=== PATIENT | female | born 1950 | race Caucasian/White ===

== ENCOUNTER → 2019-02-13 07:43 | Outpatient (CLI) | payer MEDICARE, SELFPAY ==
--- NOTE | 2019-02-13 07:51 | BI_ITS ---
MAMMOGRAPHY - BILATERAL SCREENING REASON FOR EXAM: Female, 68 years old. Routine annual screening examination. PERTINENT HISTORY: Aunt with breast cancer. Bilateral stereotactic breast biopsy and left excisional breast biopsy. TECHNIQUE: Digital bilateral breast rachael (3D mammographic acquisition) in the CC and MLO projections. 2-D mediolateral oblique (MLO) and craniocaudad (CC) views of both breasts were obtained. CAD: Full Field Digital Mammography with Computer Added Detection was performed. COMPARISON: Comparison is made with prior outside examination dated February 12, 2018. FINDINGS: Breast Composition: There are scattered areas of fibroglandular density. There are no dominant masses or suspicious calcifications. No other significant abnormalities are identified. There has been no significant change since the prior study. BI/SCREEN MAMM (CAD) W/RACHAEL BILAT IMPRESSION: Stable bilateral screening mammogram. Yearly follow-up mammogram recommended. (A) ASSESSMENT CATEGORY: BIRADS Category 2: Benign. A letter regarding these results will be sent to the patient by the facility within 30 days. Approximately 10% of breast cancers are not detected by mammography. A normal mammogram should not delay biopsy of a clinically suspicious abnormality. [id number] Electronically Signed: Quinton Izquierdo, at 8:59 EST , Service support ,
== END ==
PROVIDERS: Family Provider Physician Assistant; PCP Physician Assistant; Referring Provider Physician Assistant; Visit Provider Physician Assistant
DX: Z12.31 Encounter for screening mammogram for malignant neoplasm of breast (principal)
CPT/HCPCS: 77063; 77067

== ENCOUNTER → 2020-04-16 06:55 | Outpatient (CLI) | payer MEDICARE, SELFPAY ==
--- NOTE | 2020-04-16 06:57 | BI_ITS ---
MAMMOGRAPHY - BILATERAL SCREENING REASON FOR EXAM: Female, 70 years old. Routine annual screening examination. PERTINENT HISTORY: Aunt with breast cancer. History of remote bilateral stereotactic breast biopsies. TECHNIQUE: Digital bilateral breast rachael (3D mammographic acquisition) in the CC and MLO projections. 2-D mediolateral oblique (MLO) and craniocaudad (CC) views of both breasts were obtained. CAD: Full Field Digital Mammography with Computer Added Detection was performed. COMPARISON: Comparison is made with prior examination dated 02/13/2019. FINDINGS: Breast Composition: There are scattered areas of fibroglandular density. There are no dominant masses or suspicious calcifications. No other significant abnormalities are identified. There has been no significant change since the prior study. BI/SCRN MAMM (CAD)W/RACHAEL BILAT IMPRESSION: Stable bilateral screening mammogram. Yearly follow-up mammogram recommended. (A) ASSESSMENT CATEGORY: BIRADS Category 1: Negative. A letter regarding these results will be sent to the patient by the facility within 30 days. Approximately 10% of breast cancers are not detected by mammography. A normal mammogram should not delay biopsy of a clinically suspicious abnormality. [id number] Electronically Signed: Quinton Izquierdo MD at 8:28 EST , Service support ,
== END ==
PROVIDERS: PCP Registered Nurse; Referring Provider Registered Nurse; Visit Provider Registered Nurse
DX: Z12.31 Encounter for screening mammogram for malignant neoplasm of breast (principal)
CPT/HCPCS: 77063; 77067

== ENCOUNTER 2021-04-20 07:38 | Outpatient (CLI) | payer MEDICARE, SELFPAY ==
--- NOTE | 2021-04-20 07:41 | BI_ITS ---
MAMMOGRAPHY - BILATERAL SCREENING REASON FOR EXAM: Female, 71 years old. Routine annual screening examination. PERTINENT HISTORY: Aunt with breast cancer. Remote bilateral stereotactic breast biopsies. Remote right excisional breast biopsy. TECHNIQUE: Digital bilateral breast rachael (3D mammographic acquisition) in the CC and MLO projections. 2-D mediolateral oblique (MLO) and craniocaudad (CC) views of both breasts were obtained. CAD: Full Field Digital Mammography with Computer Added Detection was performed. COMPARISON: Comparison is made with prior study dated 10/14/2020 and 02/13/2019. FINDINGS: Breast Composition: There are scattered areas of fibroglandular density. There are no dominant masses or suspicious calcifications. No other significant abnormalities are identified. There has been no significant change since the prior study. BI/SCRN MAMM (CAD)W/RACHAEL BILAT IMPRESSION: Stable bilateral screening mammogram. Yearly follow-up mammogram recommended. (A) ASSESSMENT CATEGORY: BIRADS Category 1: Negative. A letter regarding these results will be sent to the patient by the facility within 30 days. Approximately 10% of breast cancers are not detected by mammography. A normal mammogram should not delay biopsy of a clinically suspicious abnormality. [id number] Electronically Signed: Quinton Izquierdo MD at 8:42 EST , Service support ,
== END 2021-04-20 23:59 | disposition short-term general hospital (02) ==
LOC: OPBI 07:39
PROVIDERS: PCP Registered Nurse; Visit Provider Registered Nurse
DX: Z12.31 Encounter for screening mammogram for malignant neoplasm of breast (principal); Z80.3 Family history of malignant neoplasm of breast
CPT/HCPCS: 77063; 77067

== ENCOUNTER → 2022-04-22 | Outpatient (CLI) | payer MEDICARE, SELFPAY ==
--- NOTE | 2022-04-22 10:11 | BI_ITS ---
MAMMOGRAPHY - BILATERAL SCREENING REASON FOR EXAM: Female, 72 years old. Routine annual screening examination. PERTINENT HISTORY: Aunt with breast cancer. History of prior bilateral stereotactic biopsies and right excisional breast biopsy. TECHNIQUE: Digital bilateral breast rachael (3D mammographic acquisition) in the CC and MLO projections. 2-D mediolateral oblique (MLO) and craniocaudad (CC) views of both breasts were obtained. CAD: Full Field Digital Mammography with Computer Added Detection was performed. COMPARISON: Comparison is made with prior examination dated 04/20/2021 and 04/16/2020. FINDINGS: Breast Composition: There are scattered areas of fibroglandular density. There are no dominant masses or suspicious calcifications. No other significant abnormalities are identified. There has been no significant change since the prior study. BI/SCRN MAMM (CAD)W/RACHAEL BILAT IMPRESSION: Stable bilateral screening mammogram. Yearly follow-up mammogram recommended. (A) ASSESSMENT CATEGORY: BIRADS Category 1: Negative. A letter regarding these results will be sent to the patient by the facility within 30 days. Approximately 10% of breast cancers are not detected by mammography. A normal mammogram should not delay biopsy of a clinically suspicious abnormality. [id number] Electronically Signed: Quinton Izquierdo MD at 11:16 EST ,
== END | disposition home or self-care (01) ==
LOC: OPBI 10:09
PROVIDERS: PCP Registered Nurse; Visit Provider Registered Nurse
DX: Z12.31 Encounter for screening mammogram for malignant neoplasm of breast (principal)
CPT/HCPCS: 77063; 77067

== ENCOUNTER → 2023-04-24 | Outpatient (CLI) | payer MEDICARE, SELFPAY ==
--- NOTE | 2023-04-24 09:47 | BI_ITS ---
MAMMOGRAPHY - BILATERAL SCREENING REASON FOR EXAM: Female, 73 years old. Routine annual screening examination. PERTINENT HISTORY: Aunt with breast cancer. History of prior bilateral stereotactic biopsies. Remote right excisional breast biopsy. TECHNIQUE: Digital bilateral breast rachael (3D mammographic acquisition) in the CC and MLO projections. 2-D mediolateral oblique (MLO) and craniocaudad (CC) views of both breasts were obtained. CAD: Full Field Digital Mammography with Computer Added Detection was performed. COMPARISON: Comparison is made with prior study dated October 20, 2022 and October 18, 2021. FINDINGS: Breast Composition: There are scattered areas of fibroglandular density. There are no dominant masses or suspicious calcifications. The patient clip marker is seen in the central lateral aspect of the left breast. No other significant abnormalities are identified. There has been no significant change since the prior study. BI/SCRN MAMM (CAD)W/RACHAEL BILAT IMPRESSION: Stable bilateral screening mammogram. Yearly follow-up mammogram recommended. (A) ASSESSMENT CATEGORY: BIRADS Category 2: Benign. A letter regarding these results will be sent to the patient by the facility within 30 days. Approximately 10% of breast cancers are not detected by mammography. A normal mammogram should not delay biopsy of a clinically suspicious abnormality. [id number] Electronically Signed: Quinton Izquierdo MD at 11:04 EST ,
--- OUTSIDE RECORDS SUMMARY | 2023-04-24 10:36 | XMS RPT_ITS | CCD ---
Author Name Unknown Address [address] [place] [address] Organization [facility] Care Team Providers Care Senior Consulting Manager Name Role Phone Jaida Muniz Unavailable Hoang Kay Unavailable [phone] JAIDA MUNIZ Unavailable Unavailable JAIDA MUNIZ Unavailable Unavailable JAIDA MUNIZ Unavailable Unavailable Marisa Carter PA-C Primary Care Provider [phone] Marisa Carter PA-C Primary Care Provider [phone] Marisa Carter PA-C Primary Care Provider [phone] Marisa CARTER Primary Care Unavailable DOMONIQUE GALVEZ Referring Unavailable Marisa CARTER Primary Care Unavailable DOMONIQUE GALVEZ Attending Unavailable Medications Current Medications Medication Drug Class(es) Dates Sig (Normalized) Sig (Original) rosuvastatin calcium 5 mg oral tablet (1 source) HMG-CoA Reductase Inhibitor take 1 tablet by mouth once daily rosuvastatin (CRESTOR) 5 MG PO TABS take 1 Tab by mouth Daily. Active Completed/Discontinued Medications Medication Drug Class(es) Dates Sig (Normalized) Sig (Original) atorvastatin 40 mg oral tablet (15 sources) HMG-CoA Reductase Inhibitor Start: 02-15-2022 End: 01-24-2023 take 1 tablet by mouth once daily atorvastatin (LIPITOR) 40 mg tablet Indications: Mixed hyperlipidemia Take 1 tablet by mouth once daily. 90 tablet 3 01/24/2023 Active Problems Active Problems Problem Classification Problem Date Documented Date Episodic/Chronic Diabetes mellitus without complication (15 sources) Disorder of glucose metabolism; Translations: [Other abnormal glucose] Onset: 10-30-2009 11-14-2014 Episodic Disorders of lipid metabolism (16 sources) Hyperlipidemia; Translations: [Hyperlipidemia, unspecified] Onset: 01-19-2016 01-19-2016 Chronic Nonmalignant breast conditions (1 source) Fibrocystic disease of breast; Translations: [Fibrocystic breast] 12-09-2008 Chronic Nonmalignant breast conditions (1 source) Breast lump; Translations: [Breast nodule] 09-15-2008 Episodic Other ear and sense organ disorders (2 sources) Acute otitis externa of right ear; Translations: [Unspecified acute noninfective otitis externa, right ear] Episodic Other endocrine disorders (18 sources) Hyperparathyroidism; Translations: [Hyperparathyroidism, unspecified] Onset: 04-19-2018 Chronic Other endocrine disorders (1 source) Hyperparathyroidism, unspecified; Translations: [Hyperparathyroidism (HCC)] Onset: 04-19-2018 Chronic Other nutritional; endocrine; and metabolic disorders (3 sources) Hypercalcemia; Translations: [Hypercalcemia] Chronic Residual codes; unclassified (1 source) Asymptomatic menopausal state; Translations: [Asymptomatic postmenopausal status] Onset: 02-21-2023 Episodic Substance-related disorders (14 sources) Tobacco user; Translations: [Nicotine dependence, unspecified, uncomplicated] Onset: 01-11-2006 03-22-2021 Chronic Thyroid disorders (20 sources) Multinodular goiter; Translations: [Nontoxic multinodular goiter] Onset: 05-30-2017 Chronic Unclassified (3 sources) Breast neoplasm screening status; Translations: [Mammography abnormal] 09-15-2008 Episodic Unclassified (1 source) Encounter for screening mammogram for malignant neoplasm of breast / Z12.31(ICD-10) Onset: 02-12-2018 Past or Other Problems Problem Classification Problem Date Documented Da te Episodic/Chronic Genitourinary symptoms and ill-defined conditions (14 sources) Oseas hematuria; Translations: [Gross hematuria] Onset: 01-02-2019 01-02-2019 Episodic Headache; including migraine (14 sources) Headache; Translations: [Chronic nonintractable headache] Onset: 09-24-2009 01-22-2016 Episodic Other bone disease and musculoskeletal deformities (17 sources) Osteopenia; Translations: [Other specified disorders of bone density and structure, unspecified thigh] Onset: 10-04-2017 Episodic Other bone disease and musculoskeletal deformities (1 source) Other specified disorders of bone density and structure, unspecified thigh; Translations: [Osteopenia of neck of femur, unspecified laterality] Onset: 10-04-2017 Episodic Unclassified (1 source) Encounter for screening mammogram for malignant neoplasm of breast; Translations: [Encounter for screening mammogram for malignant neoplasm of breast] Onset: 02-12-2018 Results Test Name Value Interpretation Reference Range Facil ity Vital Signs Date Time Vital Sign Value Performing Clinician Ricardo kahn 01-16-2022 13:41-0400 Body temperature 98.4 [degF] Kirsten Pat ELECTRICAL INSTALLATION INSPECTOR.CORRECTIONS SERGEANT Work Phone: [facility] 01-16-2022 13:41-0400 Body weight 72.12 kg Kirsten Pat ELECTRICAL INSTALLATION INSPECTOR.CORRECTIONS SERGEANT Work Phone: [facility] 01-16-2022 13:41-0400 Diastolic blood pressure 84 mm[Hg] Kirsten Pat ELECTRICAL INSTALLATION INSPECTOR.CORRECTIONS SERGEANT Work Phone: [facility] 01-16-2022 13:41-0400 Heart rate 126 /min Kirsten Pat ELECTRICAL INSTALLATION INSPECTOR.CORRECTIONS SERGEANT Work Phone: [facility] 01-16-2022 13:41-0400 Respiratory rate 18 /min Kirsten Pat ELECTRICAL INSTALLATION INSPECTOR.CORRECTIONS SERGEANT Work Phone: [facility] 01-16-2022 13:41-0400 SaO2% (BldA) [Mass fraction] 98 % Kirsten Pat ELECTRICAL INSTALLATION INSPECTOR.CORRECTIONS SERGEANT Work Phone: [facility] 01-16-2022 13:41-0400 Systolic blood pressure 148 mm[Hg] Kirsten Pat ELECTRICAL INSTALLATION INSPECTOR.CORRECTIONS SERGEANT Work Phone: [facility] 06-22-2021 10:17-0400 Body height 165.1 cm Zulay Littlejohn MD Work Phone: [facility] 06-22-2021 10:17-0400 Body weight 76.2 kg Zulay Littlejohn MD Work Phone: [facility] 06-22-2021 10:17-0400 Diastolic blood pressure 76 mm[Hg] Zulay Littlejohn MD Work Phone: [facility] 06-22-2021 10:17-0400 Heart rate 99 /min Zulay Littlejohn MD Work Phone: [facility] 06-22-2021 10:170400 SaO2% (BldA) [Mass fraction] 98 % Zulay Littlejohn MD Work Phone: [facility] 06-22-2021 10:170400 Systolic blood pressure 146 mm[Hg] Zulay Littlejohn MD Work Phone: [facility] Encounters Encounter Date Encounter Type Care Provider Facility Start: 03-01-2023 ambulatory Michelle Andrew MA [facility] Procedures Date Procedure Procedure Detail Performing Clinician Start: 02-21-2023 Lipid 1995 panel - S filemon or Plasma Domonique Galvez APRN.CORRECTIONS SERGEANT Work Phone: Start: 08-02-2021 Dxa bone density leilani dy 1/> sites axial skel Zulay Littlejohn MD Work Phone: Start: 08-02-2021 Us soft tissue head & neck real time imge docm Zulay Littlejohn MD Work Phone: Start: 06-11-2021 Lipid 1996 panel - S filemon or Plasma WOLF Carter PA-C Work Phone: Start: 04-20-2021 Mammography Zulay Littlejohn MD Work Phone: Start: 02-13-2018 Mammography JAIDA ALCANTARA Start: 01-22-2016 Adult depression scr eening assessment Zulay Littlejohn MD Work Phone: Plan of Treatment Date Care Activity Detail Author Start: 02-22-2028 Lipid 1996 panel - Serum or Plasma Lipid Screening [facility] Start: 06-11-2026 Lipid 1996 panel - Serum or Plasma Lipid Screening [facility] Start: 06-11-2026 LIPID SCREEN LIPID SCREEN [facility] Start: 02-21-2026 Diabetes Screening Diabetes Screening [facility] Start: 11-14-2024 Urine microalbumin profile [facility] Start: 06-11-2024 DIABETES SCREEN DIABETES SCREEN [facility] Start: 06-11-2024 Diabetes Screening Diabetes Screening [facility] Start: 02-22-2024 Annual PCP Team Chronic Disease Visit Annual PCP Team Chronic Disease Visit [facility] Start: 02-15-2023 ANNUAL PCP TEAM CHRONIC DISEASE VISIT ANNUAL PCP TEAM CHRONIC DISEASE VISIT [facility] Start: 11-25-2022 Covid-19 Vaccine ( season) Covid-19 Vaccine ( season) [facility] Start: 11-25-2022 Influenza vaccination [facility] Start: 04-29-2022 COVID-19 VACCINE (6 - Moderna series) COVID-19 VACCINE (6 - Moderna series) [facility] Start: 04-20-2022 Mammography [facility] Start: 04-05-2022 ANNUAL PCP TEAM CHRONIC DISEASE VISIT ANNUAL PCP TEAM CHRONIC DISEASE VISIT [facility] Start: 03-27-2022 ADVANCE DIRECTIVE DISCUSSION ADVANCE DIRECTIVE DISCUSSION [facility] Start: 03-27-2022 DEPRESSION ASSESSMENT DEPRESSION ASSESSMENT [facility] Start: 06-22-2021 End: 08-22-2021 Renal function 2000 panel - Serum or Plasma RENAL FUNCTION PANEL Lab Routine Hypercalcemia Expected: 06/22/2021, Expires: 08/22/2021 [facility] Work Phone: Immunizations Immunization Date Immunization Notes Care Provider Fa susy 12-27-2021 influenza virus vacc ine, unspecified formulation WOLF Carter PA-C Work Phone: [facility] 08-16-2021 COVID-19 original vaccine, booster dose, monovalent (MODERNA) Kirsten Stewart APRN.CNP Work Phone: [facility] Work Phone: 06-24-2020 COVID-19 vaccine, fu ll dose (MODERNA) Zulay Littlejohn MD Work Phone: [facility] 05-27-2020 COVID-19 vaccine, fu ll dose (MODERNA) Zulay Littlejohn MD Work Phone: [facility] 03-02-2020 pneumococcal polysaccharide vaccine, 23 valent Zulay Littlejohn MD Work Phone: [facility] Work Phone: 12-13-2019 influenza, injectabl e, quadrivalent, preservative free Zulay Littlejohn MD Work Phone: [facility] Work Phone: 10-01-2019 zoster vaccine recombinant Zulay Littlejohn MD Work Phone: [facility] Work Phone: 07-31-2019 zoster vaccine recombinant Zulay Littlejohn MD Work Phone: [facility] Work Phone: 01-23-2019 influenza, high dose seasonal, preservative-free Zulay Littlejohn MD Work Phone: [facility] 01-22-2018 influenza, high dose seasonal, preservative-free Zulay Littlejohn MD Work Phone: [facility] 04-11-2017 pneumococcal conjuga te vaccine, 13 valent Zulay Littlejohn MD Work Phone: [facility] Work Phone: 01-11-2017 influenza, injectabl e, quadrivalent, contains preservative Zulay Littlejohn MD Work Phone: [facility] 01-11-2017 influenza virus vacc ine, unspecified formulation Jaida [facility] Work Phone: 01-22-2016 influenza, injectabl e, quadrivalent, contains preservative Zulay Littlejohn MD Work Phone: [facility] Work Phone: 01-02-2015 influenza, injectabl e, quadrivalent, contains preservative Zulay Littlejohn MD Work Phone: [facility] 11-14-2014 pneumococcal polysaccharide vaccine, 23 valent Zulay Littlejohn MD Work Phone: [facility] 11-14-2014 tetanus toxoid, redu celso diphtheria toxoid, and acellular pertussis vaccine, adsorbed Zulay Littlejohn MD Work Phone: [facility] 01-09-2014 influenza, seasonal, injectable Zulay Littlejohn MD Work Phone: [facility] 11-16-2012 zoster vaccine, live Zulay carrion MD Work Phone: [facility] 01-14-2010 influenza virus vacc ine, unspecified formulation Zulay Littlejohn MD Work Phone: [facility] 01-08-2009 influenza virus vacc ine, unspecified formulation Zulay Littlejohn MD Work Phone: [facility] 02-21-2007 influenza virus vacc ine, unspecified formulation Zulay Littlejohn MD Work Phone: [facility] Work Phone: 01-30-2006 influenza virus vacc ine, unspecified formulation Zulay Littlejohn MD Work Phone: [facility] Work Phone: 10-08-2004 tetanus and diphther ia toxoids, not adsorbed, for adult use Zulay Littlejohn MD Work Phone: [facility] Work Phone: Payers Date Payer Category Payer Medicare AETNA MEDICARE A ETNA MEDICARE PPO [id number] 2021-Present [phone] [address] [place] [address] [facility] [id number] 2021 Medicare AETNA MEDICARE A ETNA MEDICARE PPO [id number] 2021-Present [phone] [address] [place] [address] [facility] [id number] 2021 Medicare [id number] 2017 Medicare [id number] 1950 Unknown [id number] Social History Date Type Detail Facility Start: 02-12-2018 [facility] Work Phone: Start: 02-12-2018 End: 02-21-2023 Cigarettes smoked current (pack per day) - Reported [facility] Start: 1950 Sex Assigned At Not on file [facility] Work Phone: Start: 12-11-2018 End: 01-16-2022 Tobacco smoking status NHIS Ex-smoker [facility] Work Phone: History of tobacco use Cigarette Smoker C [facility] Work Phone: Start: 12-11-2018 End: 01-16-2022 Tobacco use and exposure Smokeless tobacco non-user [facility] Work Phone: Start: 06-22-2021 End: 02-21-2023 Alcohol intake Current drinker of alcohol (finding) [facility] Start: 03-30-2021 End: 02-10-2022 History SDOH Alcohol Frequency 2 [facility] Start: 03-30-2021 End: 02-10-2022 History SDOH Alcohol Std Drinks 1 [facility] Start: 03-30-2021 History SDOH Social Connections Phone 5 [facility] Start: 03-30-2021 History SDOH Social Connections Living 3 [facility] Start: 03-29-2020 Education 12 [facility] Start: 06-12-2021 End: 02-15-2022 Exposure to SARS-CoV-2 (event) Not sure [facility] History of tobacco use Current smoker [facility] Start: 03-30-2021 End: 02-21-2023 Social connection and isolation panel [facility] Do you belong to any clubs or organizations such as baptism groups, unions, fraternal or athletic groups, or school groups? Yes [facility] Are you now , , , , never or living with a partner? [facility] How often to you hav e a drink containing alcohol? Monthly or less [facility] How many standard dr inks containing alcohol do you have on a typical day? 1 or 2 [facility] How often do you hav e 6 or more drinks on 1 occasion? Never [facility] How hard is it for y ou to pay for the very basics like food, housing, medical care, and heating Not hard at all [facility] Do you feel stress - tense, restless, nervous, or anxious, or unable to sleep at night because your mind is troubled all the time - these days [OSQ] Only a little [facility] (I/We) worried wheth er (my/our) food would run out before (I/we) got money to buy more. Never true [facility] In the past 12 month s, was there a time when you were not able to pay the mortgage or rent on time? No [facility] Clinical Notes 06-22-2021 to 03-01-2023 Michelle Andrew MA - 03/01/2023 12:30 PM ESTTelephone Encounter - Roxanna Everett RN - 02/27/2023 3:01 PM ESTTelephone Encounter - Ericka Choe Ma - 02/27/2023 10:26 AM EST Note Date & Type Note Facility 03-01-2023 Note HNO ID: [id number] Author: Michelle Andrew MA Service: ? Author Type: Vb Net Developer Type: Progress Notes Filed: 03/01/2023 1:33 PM Note Text: POPULATION HEALTH NAVIGATION OUTREACH Action/ [facility] Care Gaps 11.7.23 Discuss/Due for: Follow Up, Mammogram, Colorectal Cancer Screening, Advance Directives MyChart sent 10/28/2022 Recheck in 6 months. Outcome: 1st attempt - Left Message 2nd attempt - MyChart message sent Patient Identified by Name and : NO Outreach Outcome/Action Unable to reach patient: Left message MyChart message sent Did you use a PCP flex slot to schedule this appointment? N/A Reason for Outreach Care Gap or Scheduling/Wellness visits Payer: Payor: AETNA MEDICARE / Plan: AETNA MEDICARE PPO / Product Type: PPO / Care Gap Reviewed:: Follow-up appointment Breast Cancer screening Colorectal Cancer Screening Reminder: Reminder note to check Health Maintenance for items below Health Maintenance items due: RSV Vaccine(1 - 1-dose 60+ series) Never done Colorectal Cancer Screening due on 04/05/2018 Advance Directive Discussion Never done Depression Assessment Never done Mammogram Screening due on 04/20/2022 Covid-19 Vaccine( season) due on 11/25/2022 Navigation Signature: Michelle Andrew MA March 01, 2023 12:31 PM [facility] 03-01-2023 Note Patient Outreach (NE TNAV) DENA MCALLISTER ([id number]) 1950 F Date Time Provider Department 03/01/23 MICHELLE ANDREWV During your visit today, we recorded the following information about you: Michelle Andrew MA 03/01/2023 1:33 PM Signed POPULATION HEALTH NAVIGATION OUTREACH Action/ [facility] Care Gaps 11.7.23 Discuss/Due for: Follow Up, Mammogram, Colorectal Cancer Screening, Advance Directives MyChart sent 10/28/2022 Recheck in 6 months. Outcome: 1st attempt - Left Message 2nd attempt - MyChart message sent Patient Identified by Name and : NO Outreach Outcome/Action Unable to reach patient: Left message MyChart message sent Did you use a PCP flex slot to schedule this appointment? N/A Reason for Outreach Care Gap or Scheduling/Wellness visits Payer: Payor: AET MEDICARE / Plan: AET MEDICARE PPO / Product Type: PPO / Care Gap Reviewed:: Follow-up appointment Breast Cancer screening Colorectal Cancer Screening Reminder: Reminder note to check Health Maintenance for items below Health Maintenance items due: RSV Vaccine(1 - 1-dose 60+ series) Never done Colorectal Cancer Screening due on 04/05/2018 Advance Directive Discussion Never done Depression Assessment Never done Mammogram Screening due on 04/20/2022 Covid-19 Vaccine() due on 11/25/2022 Navigation Signature: Michelle Andrew MA March 01, 2023 12:31 PM Allergies As of Date: 03/01/2023 (No Known Allergies) Date Reviewed: 02/21/2023 Reviewed by: Brenton Crowell - Fully Assessed Reason for Visit: Population Health Navigation Outreach [3910] Cmt: t Care Gaps 11.7. Prescriptions as of 03/01/2023 - atorvastatin (LIPITOR) 40 mg tablet Take 1 tablet by mouth once daily. - calcium carbonate 600 mg-cholecalciferol 200 units (CALCIUM 600 + D,3,) 600 mg(1,500mg) -200 unit tab Pt takes 300 mg of OTC calcium daily. - OTC NUTRITIONAL SUPPLEMENT once daily. Calcium supplement - MULTIVITAMIN TAB Take one(1) tablet daily. - VITAMIN E 400 UNIT CAP Take one(1) tablet daily. 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 Outcome: 1st attempt - Left Message 2nd attempt - MyChart message sent Patient Identified by Name and : NO Outreach Outcome/Action Unable to reach patient: Left message MyChart message sent Did you use a PCP flex slot to schedule this appointment? N/A Reason for Outreach Care Gap or Scheduling/Wellness visits Payer: Payor: AETNA MEDICARE / Plan: AET MEDICARE PPO / Product Type: PPO / Care Gap Reviewed:: Follow-up appointment Breast Cancer screening Colorectal Cancer Screening Reminder: Reminder note to check Health Maintenance for items below Health Maintenance items due: RSV Vaccine(1 - 1-dose 60+ series) Never done Colorectal Cancer Screening due on 04/05/2018 Advance Directive Discussion Never done Depression Assessment Never done Mammogram Screening due on 04/20/2022 Covid-19 Vaccine(2022- season) due on 11/25/2022 Navigation Signature: Michelle Andrew MA March 01, 2023 12:31 PM documented in this encounter [facility] 02-27-2023 Miscellaneous Notes Patient calls and notified of results and providers instructions. Patient verbalizes understanding and will call back to schedule consult with endocrinology. Roxanna Everett RN Message left for pt to call back for results. Ericka Choe MA Called and left a voicemail for the Patient to call back and ask for a nurse to receive the providers message. Amber Bolton RN Can please let patient know that I received her lab results. Her thyroid level continues with the subclinical hyperthyroidism. Her calcium level has actual gone up higher. We should have her see endocrinology again. I put a new referral in. All the other labs look stable/within normal. Domonique Galvez APRN.VAELRIE documented in this encounter [facility] 02-21-2023 Note HNO ID: [id number] Author: Domonique Galvez APRN.CNP Service: ? Author Type: Nurse Practitioner Type: Progress Notes Filed: 02/21/2023 6:30 PM Note Text: This is a 72 year old female who presents today with: Patient presents with: Follow Up HISTORY OF PRESENT ILLNESS: Dena Mcallister is a 72 year old female. Patient presents with: Follow Up Pt presents today to follow-up. HYPERLIPIDEMIA: Patient is taking medications: Yes. Patient is watching diet: Yes. Patient denies myalgias: Yes. Patient denies gi upset: Yes Hyperparathyroidism. Due for surveillance. Due for dexa over summer. REVIEW OF SYSTEMS GENERAL: No weight loss, malaise or fevers/chills HEENT: Negative for frequent or significant headaches, No changes in hearing or vision. NECK: Negative for lumps, goiter, pain and significant neck swelling RESPIRATORY: Negative for cough, hemoptysis, wheezing, dyspnea or shortness of breath CARDIOVASCULAR: Negative for chest pain, leg swelling, orthopnea, or palpitations GI: No nausea, vomiting, or diarrhea/constipation. No hematochezia/melena. No heartburn or reflux symptoms. : No history of dysuria, frequency or incontinence. Gets up 2-3 times a night -- back to sleep easily. MUSCULOSKELETAL: Negative for joint pain or swelling. SKIN: Negative for lesions, rash, and itching ENDOCRINE: Negative for cold or heat intolerance, polyuria, polydipsia and goiter NEURO: No history of headaches, syncope, paralysis, seizures or tremors PAST MEDICAL HISTORY: PAST MEDICAL HISTORY Diagnosis Date Dysmetabolic syndrome X Gross hematuria 01/02/2019 Gross hematuria X 1 episode Urine cytology negative CT urogram negative - 2 non-obstructive stones History of bilateral breast biopsy 10/03/2011 Follows with [facility] in [place]; reports benign History of kidney stones Impaired fasting glucose 08/03/2006 Multiple thyroid nodules Other and unspecified hyperlipidemia Pre-diabetes Unspecified disorder of thyroid nodule PAST SURGICAL HISTORY Procedure Laterality Date BIOPSY BREAST OPEN INCISIONAL Bx of breast, incisional SALPINGO-OOPHORECTOMY COMPL/PRTL UNI/BI SPX Salpingo-oophorectomy TOTAL ABDOMINAL HYSTERECT W/WO RMVL TUBE OVARY Hysterectomy, VENKATA ALLERGIES Patient has no known allergies. MEDICATIONS Current Outpatient Medications Medication Sig atorvastatin (LIPITOR) 40 mg tablet Take 1 tablet by mouth once daily. calcium carbonate 600 mg-cholecalciferol 200 units (CALCIUM 600 + D,3,) 600 mg(1,500mg) -200 unit tab Pt takes 300 mg of OTC calcium daily. OTC NUTRITIONAL SUPPLEMENT once daily. Calcium supplement MULTIVITAMIN TAB Take one(1) tablet daily. VITAMIN E 400 UNIT CAP Take one(1) tablet daily. ciprofloxacin-dexAMETHasone (CIPRODEX) 0.3-0.1 % otic suspension Use 4 Drops in the right ear twice daily. DOCOSAHEXANOIC ACID/EPA (FISH OIL ORAL) Take by mouth once daily. No current facility-administered medications for this visit. FAMILY HISTORY Problem Relation Age of Onset Heart Father [place] Thyroid Mother levothyroxine Social History Tobacco Use Smoking status: Former Packs/day: 0.75 Years: 10.00 Additional pack years: 0.00 Total pack years: 7.50 Types: Cigarettes Smokeless tobacco: Never Substance Use Topics Alcohol use: Yes Comment: rarely Drug use: No EXAM: BP 146/86 Pulse 98 Resp 16 Wt 61.2 kg (135 lb) SpO2 98% BMI 22.47 kg/m? 128/84 PHYSICAL EXAM: General Appearance: Well appearing, alert, in no acute distress, well-hydrated, well nourished.. Skin: Skin color, texture, turgor normal, no suspicious rashes or lesions. Head: Normocephalic, no masses, lesions, tenderness or abnormalities. Eyes: Anicteric sclera. Pupils are equally round and reactive to light. Extraocular movements are intact. . Ears: External ears normal, right canal with dry scaly skin. Normal TMs bilaterally. Oropharynx: Lips, mucosa, and tongue normal, teeth and gums normal, oropharynx normal. Neck: Supple, no adenopathy; thyroid symmetric, normal size, no bruits. Lungs: Lungs clear to auscultation. No wheezing, rhonchi, rales.. Heart: RRR without murmur, gallop, or rubs. No ectopy. Abdomen: Normal abdominal exam, Abdomen soft, non-tender. Bowel sounds normal. No masses, organomegaly. Extremities: No deformities, edema, skin discoloration, clubbing or cyanosis. Good capillary refill. . Neurologic: Gait normal. ASSESSMENT/PLAN: 1. Mixed hyperlipidemia - ICD9: 272.2, ICD10: E78.2 (primary diagnosis) - Control undetermined, due for labs - Continue current medications - Counseled on healthy diet and regular exercise - CBC + DIFF - LIPID PANEL BASIC - LIPID PANEL, NONFASTING 2. Asymptomatic postmenopausal status - ICD9: V49.81, ICD10: Z78.0 - VITAMIN D 25 HYDROXY - DXA-FOREARM SKELETON - DXA - VFA ASSESS ONLY 3. Hyperparathyroidism (HCC) - ICD9: 252.00, ICD10: E21.3 - COMP METABOLIC PANEL - PTH I (more content not included)... [facility] 02-21-2023 Miscellaneous Notes Mammogram order was faxed to [facility] [phone] per pt's request. Mariana Ag LPN documented in this encounter [facility] 01-25-2023 Note Patient Outreach (IN TMMN) DENA MCALLISTER ([id number]) 1950 F Date Time Provider Department 01/25/23 Marisa CARTER During your visit today, we recorded the following information about you: Allergies As of Date: 01/25/2023 (No Known Allergies) Date Reviewed: 02/15/2022 Reviewed by: Mariana Wade LPN - Fully Assessed Visit Diagnosis:Encounter for screening mammogram for breast cancer [Z12.31] Order(s):[facility] SCREENING [[id number]] Order #: [id number] FUTURE Prescriptions as of 01/30/2023 - atorvastatin (LIPITOR) 40 mg tablet Take 1 tablet by mouth once daily. - ciprofloxacin-dexAMETHasone (CIPRODEX) 0.3-0.1 % otic suspension Use 4 Drops in the right ear twice daily. - calcium carbonate 600 mg-cholecalciferol 200 units (CALCIUM 600 + D,3,) 600 mg(1,500mg) -200 unit tab Pt takes 300 mg of OTC calcium daily. - OTC NUTRITIONAL SUPPLEMENT once daily. Calcium supplement - DOCOSAHEXANOIC ACID/EPA (FISH OIL ORAL) Take by mouth once daily. - MULTIVITAMIN TAB Take one(1) tablet daily. - VITAMIN E 400 UNIT CAP Take one(1) tablet daily. 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 No need to notify patient. Pharmacy phones for refill(s): Requested Prescriptions Pending Prescriptions Disp Refills atorvastatin (LIPITOR) 40 mg tablet 90 tablet 3 Sig: Take 1 tablet by mouth once daily. Date of last office visit : 02/15/2022 Date of next office visit : 02/21/2023 Last 2 Encounter Wt Readings: Date: Wt: 02/15/2022 72.9 kg (160 lb 12.8 oz) 01/16/2022 72.1 kg (159 lb) Please advise. Michelle Cortez documented in this encounter [facility] 10-28-2022 Note HNO ID: [id number] Author: Katie Rolon Service: ? Author Type: ? Type: Progress Notes Filed: 10/28/2022 5:09 PM Note Text: POPULATION HEALTH NAVIGATION OUTREACH Action/FYI 10/28/22 [employer] care gaps to address: ~PCP follow up ~Colorectal cancer screening ~Screening mammogram ~Advance directives Outcome: ~Left message on voice mail and sent MyChart message. Patient Identified by Name and : NO Outreach Outcome/Action Unable to reach patient: Left message MyChart message sent Advance Directives sent Did you use a PCP flex slot to schedule this appointment? N/A Reason for Outreach Care Gap or Scheduling/Wellness visits Payer: Payor: [facility] MEDICARE / Plan: A[employer] MEDICARE PPO / Product Type: PPO / Care Gap Reviewed:: Follow-up appointment Breast Cancer screening Colorectal Cancer Screening Reminder: Reminder note to check Health Maintenance for items below Health Maintenance items due: COLORECTAL CANCER SCREENING due on 04/05/2018 ADVANCE DIRECTIVE DISCUSSION Never done DEPRESSION ASSESSMENT Never done MAMMOGRAM due on 04/20/2022 COVID-19 VACCINE(6 - Moderna series) due on 04/29/2022 Navigation Signature: Katie Marlow Population Health Navigator October 28, 2022 12:36 PM [facility] 10-28-2022 Note Patient Outreach (NE TNAV) DENA MCALLISTER ([id number]) 1950 F Date Time Provider Department 10/28/22 KATIE MARLOW (PSS) NETNAV During your visit today, we recorded the following information about you: Katie Rolon 10/28/2022 5:09 PM Signed POPULATION HEALTH NAVIGATION OUTREACH Action/10/28/22 [employer] care gaps to address: ~PCP follow up ~Colorectal cancer screening ~Screening mammogram ~Advance directives Outcome: ~Left message on voice mail and sent MyChart message. Patient Identified by Name and : NO Outreach Outcome/Action Unable to reach patient: Left message MyChart message sent Advance Directives sent Did you use a PCP flex slot to schedule this appointment? N/A Reason for Outreach Care Gap or Scheduling/Wellness visits Payer: Payor: T MEDICARE / Plan: [employer] MEDICARE PPO / Product Type: PPO / Care Gap Reviewed:: Follow-up appointment Breast Cancer screening Colorectal Cancer Screening Reminder: Reminder note to check Health Maintenance for items below Health Maintenance items due: COLORECTAL CANCER SCREENING due on 04/05/2018 ADVANCE DIRECTIVE DISCUSSION Never done DEPRESSION ASSESSMENT Never done MAMMOGRAM due on 04/20/2022 COVID-19 VACCINE(6 - Moderna series) due on 04/29/2022 Navigation Signature: Katie Marlow Population Health Navigator October 28, 2022 12:36 PM Allergies As of Date: 10/28/2022 (No Known Allergies) Date Reviewed: 02/15/2022 Reviewed by: Mariana Wade LPN - Fully Assessed Reason for Visit: Population Health Navigation Outreach [3910] Cmt: [employer] care gaps Prescriptions as of 10/28/2022 - ciprofloxacin-dexAMETHasone (CIPRODEX) 0.3-0.1 % otic suspension Use 4 Drops in the right ear twice daily. - atorvastatin (LIPITOR) 40 mg tablet Take 1 tablet by mouth once daily. - calcium carbonate 600 mg-cholecalciferol 200 units (CALCIUM 600 + D,3,) 600 mg(1,500mg) -200 unit tab Pt takes 300 mg of OTC calcium daily. - OTC NUTRITIONAL SUPPLEMENT once daily. Calcium supplement - DOCOSAHEXANOIC ACID/EPA (FISH OIL ORAL) Take by mouth once daily. - MULTIVITAMIN TAB Take one(1) tablet daily. - VITAMIN E 400 UNIT CAP Take one(1) tablet daily. 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 Patient Identified by Name and : NO Outreach Outcome/Action Unable to reach patient: Left message MyChart message sent Advance Directives sent Did you use a PCP flex slot to schedule this appointment? N/A Reason for Outreach Care Gap or Scheduling/Wellness visits Payer: Payor: [facility] MEDICARE / Plan: A[employer] MEDICARE PPO / Product Type: PPO / Care Gap Reviewed:: Follow-up appointment Breast Cancer screening Colorectal Cancer Screening Reminder: Reminder note to check Health Maintenance for items below Health Maintenance items due: COLORECTAL CANCER SCREENING due on 04/05/2018 ADVANCE DIRECTIVE DISCUSSION Never done DEPRESSION ASSESSMENT Never done MAMMOGRAM due on 04/20/2022 COVID-19 VACCINE(6 - Moderna series) due on 04/29/2022 Navigation Signature: Katie Marlow Population Health Navigator October 28, 2022 12:36 PM documented in this encounter [facility] 05-26-2022 Note HNO ID: [id number] Author: Katie Cortez Service: ? Author Type: ? Type: Progress Notes Filed: 05/26/2022 3:42 PM Note Text: POPULATION HEALTH NAVIGATION OUTREACH Action/FYI: [employer] Care Gaps 05/26/22 Discuss the following due/overdue care gaps: ~PCP Follow up due around 08/15/22 ~Colorectal Cancer Screening ~Mammogram ~Advance Directives Outcome: ~Left message on voice mail and sent MulliganPlushart message. ~AD information sent via MulliganPlushart Patient Identified by Name and : NO Outreach Outcome/Action Unable to reach patient: Left message MyChart message sent Advance Directives sent Did you use a PCP flex slot to schedule this appointment? N/A Reason for Outreach Care Gap or Scheduling/Wellness visits Payer: Payor: [facility] MEDICARE / Plan: [employer] MEDICARE PPO / Product Type: PPO / Care Gap Reviewed:: Follow-up appointment Breast Cancer screening Colorectal Cancer Screening Reminder: Reminder note to check Health Maintenance for items below Health Maintenance items due: COLORECTAL CANCER SCREENING due on 04/05/2018 ADVANCE DIRECTIVE DISCUSSION Never done DEPRESSION ASSESSMENT Never done MAMMOGRAM due on 04/20/2022 Navigation Signature: Katie Marlow Population Health Navigator May 26, 2022 3:25 PM [facility] 05-26-2022 History of Present illness Narrative POPULATION HEALTH NAVIGATION OUTREACH Action/FYI: [employer] Care Gaps 05/26/22 Discuss the following due/overdue HM care gaps: ~PCP Follow up due around 08/15/22 ~Colorectal Cancer Screening ~Mammogram ~Advance Directives Outcome: ~Left message on voice mail and sent Kwestr message. ~AD information sent via Kwestr Patient Identified by Name and : NO Outreach Outcome/Action Unable to reach patient: Left message Kwestr message sent Advance Directives sent Did you use a PCP flex slot to schedule this appointment? N/A Reason for Outreach Care Gap or Scheduling/Wellness visits Payer: Payor: [employer] MEDICARE / Plan: AET MEDICARE PPO / Product Type: PPO / Care Gap Reviewed:: Follow-up appointment Breast Cancer screening Colorectal Cancer Screening Reminder: Reminder note to check Health Maintenance for items below Health Maintenance items due: COLORECTAL CANCER SCREENING due on 04/05/2018 ADVANCE DIRECTIVE DISCUSSION Never done DEPRESSION ASSESSMENT Never done MAMMOGRAM due on 04/20/2022 Navigation Signature: Katie Marlow Population Health Navigator May 26, 2022 3:25 PM documented in this encounter [facility] 05-26-2022 Note Patient Outreach (NE TNAV) DENA MCALLISTER ([id number]) 1950 F Date Time Provider Department 05/26/22 KATIE MARLOW (RAMSEY) NIYAV During your visit today, we recorded the following information about you: Katie Marlow Pss 05/26/2022 3:42 PM Signed POPULATION HEALTH NAVIGATION OUTREACH Action/FYI: [employer] Care Gaps 05/26/22 Discuss the following due/overdue HM care gaps: ~PCP Follow up due around 08/15/22 ~Colorectal Cancer Screening ~Mammogram ~Advance Directives Outcome: ~Left message on voice mail and sent Kwestr message. ~AD information sent via MulliganPlushart Patient Identified by Name and : NO Outreach Outcome/Action Unable to reach patient: Left message MyChart message sent Advance Directives sent Did you use a PCP flex slot to schedule this appointment? N/A Reason for Outreach Care Gap or Scheduling/Wellness visits Payer: Payor: [employer] MEDICARE / Plan: [employer] MEDICARE PPO / Product Type: PPO / Care Gap Reviewed:: Follow-up appointment Breast Cancer screening Colorectal Cancer Screening Reminder: Reminder note to check Health Maintenance for items below Health Maintenance items due: COLORECTAL CANCER SCREENING due on 04/05/2018 ADVANCE DIRECTIVE DISCUSSION Never done DEPRESSION ASSESSMENT Never done MAMMOGRAM due on 04/20/2022 Navigation Signature: Katie Marlow Population Health Navigator May 26, 2022 3:25 PM Allergies As of Date: 05/26/2022 (No Known Allergies) Date Reviewed: 02/15/2022 Reviewed by: Mariana Wade LPN - Fully Assessed Reason for Visit: Population Health Navigation Outreach [3910] Cmt: Leela Care Gap Prescriptions as of 05/26/2022 - ciprofloxacin-dexAMETHasone (CIPRODEX) 0.3-0.1 % otic suspension Use 4 Drops in the right ear twice daily. - atorvastatin (LIPITOR) 40 mg tablet Take 1 tablet by mouth once daily. - calcium carbonate 600 mg-cholecalciferol 200 units (CALCIUM 600 + D,3,) 600 mg(1,500mg) -200 unit tab Pt takes 300 mg of OTC calcium daily. - OTC NUTRITIONAL SUPPLEMENT once daily. Calcium supplement - DOCOSAHEXANOIC ACID/EPA (FISH OIL ORAL) Take by mouth once daily. - MULTIVITAMIN TAB Take one(1) tablet daily. - VITAMIN E 400 UNIT CAP Take one(1) tablet daily. 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 She would like rx sent to [facility] instead. Patient has been identified by name and date of : Yes Requested Prescriptions Pending Prescriptions Disp Refills ciprofloxacin-dexAMETHasone (CIPRODEX) 0.3-0.1 % otic suspension 7.5 mL 0 Sig: Use 4 Drops in the right ear twice daily. RX INSTRUCTIONS: Patient aware RX will be sent to pharmacy. No need to notify patient. Betzaida Cortez documented in this encounter [facility] 01-16-2022 Instructions Kirsten Stewart APRN.CNP - 01/16/2022 1:51 PM EDT Drops as discussed Tylenol as needed for discomfort Ciprodex as ordered. Follow up with ENT as needed. documented in this encounter [facility] 01-16-2022 History of Present illness Narrative Subjective The history is provided by the patient and a relative. No fence post driver was used. RUSH Mcallister is a 71 year old female who presents today for CC of right ear pain that started over the weekend, but won't go away. Patient has a h/o otitis external, about a year ago, and started using cortisporin, but solutions had . She denies any fever, mastoid pain, sore throat, nasal congestion or cough. BP 148/84 Pulse (!) 126 Temp 36.9 C (98.4 F) Resp 18 Wt 72.1 kg (159 lb) SpO2 98% BMI 26.46 kg/m Social History Tobacco Use Smoking status: Former Packs/day: 0.75 Years: 10.00 Pack years: 7.50 Types: Cigarettes Smokeless tobacco: Never Substance Use Topics Alcohol use: Yes Comment: rarely Drug use: No PAST MEDICAL HISTORY Diagnosis Date Dysmetabolic syndrome X Gross hematuria 01/02/2019 Gross hematuria X 1 episode Urine cytology negative CT urogram negative - 2 non-obstructive stones History of bilateral breast biopsy 10/03/2011 Follows with [facility] in [place]; reports benign History of kidney stones Impaired fasting glucose 08/03/2006 Multiple thyroid nodules Other and unspecified hyperlipidemia Pre-diabetes Unspecified disorder of thyroid nodule I have confirmed and edited as necessary, the [facility] Review of Systems Constitutional: Negative for chills and fever. HENT: Positive for ear pain. Negative for congestion, sinus pain and sore throat. Respiratory: Negative for cough, sputum production, shortness of breath and wheezing. Cardiovascular: Negative for chest pain. Musculoskeletal: Negative for myalgias. Neurological: Negative for headaches. Objective Physical Exam Vitals and nursing note reviewed. HENT: Head: Normocephalic and atraumatic. Right Ear: Tympanic membrane and external ear normal. Drainage and swelling present. Left Ear: Tympanic membrane, ear canal and external ear normal. Nose: No mucosal edema, congestion or rhinorrhea. Right Sinus: No maxillary sinus tenderness or frontal sinus tenderness. Left Sinus: No maxillary sinus tenderness or frontal sinus tenderness. Mouth/Throat: Pharynx: Uvula midline. No oropharyngeal exudate or posterior oropharyngeal erythema. Cardiovascular: Rate and Rhythm: Normal rate and regular rhythm. Heart sounds: Normal heart sounds. Pulmonary: Effort: Pulmonary effort is normal. Breath sounds: Normal breath sounds. Lymphadenopathy: Head: Right side of head: No submental, submandibular or tonsillar adenopathy. Left side of head: No submental, submandibular or tonsillar adenopathy. Cervical: No cervical adenopathy. Skin: General: Skin is warm and dry. Neurological: Mental Status: She is alert. Psychiatric: Mood and Affect: Affect normal. ASSESSMENT/PLAN: 1. Acute otitis externa of right ear, unspecified type - ICD9: 380.10, ICD10: H60.501 Ciprodex as ordered Tylenol prn Follow up with ENT if no improvement. Diagnosis and treatment plan were discussed and questions were answered to the patient's satisfaction. Pt acknowledged understanding of concepts and follow up plan. Specific signs and symptoms that would indicate the need for higher level of care were discussed in detail warranting prompt ER evaluation. Kirsten Stewart APRN.CNP documented in this encounter [facility] 08-16-2021 History of Present illness Narrative POPULATION HEALTH NAVIGATION OUTREACH Action/FYI Patient returned call. Declined all scheduling. Pt identified by name and : YES, via phone Outreach Outcome/Action Spoke to patient or caregiver: Patient declined Katie Cortez August 16, 2021 9:02 AM POPULATION HEALTH NAVIGATION OUTREACH Action/FYI Patient due for BP Follow Up, Colonoscopy, AD Left message and sent Smartzerhart Pt identified by name and : NO Outreach Outcome/Action Unable to reach patient: Left message MyChart message sent Reason for Outreach Care Gap or Scheduling/Wellness visits Payer: Payor: [employer] MEDICARE / Plan: A[employer] MEDICARE PPO / Product Type: PPO / Care Gap Reviewed:: Follow-up appointment Colorectal Cancer Screening Reminder: Reminder note to check Health Maintenance for items below Health Maintenance items due: DEPRESSION SCREENING due on 01/21/2017 COLORECTAL CANCER SCREENING due on 04/05/2018 ADVANCE DIRECTIVE DISCUSSION Never done COVID-19 VACCINE(4 - Booster for Moderna series) due on 05/26/2021 Message Sent to Practice: No Navigation Signature: Katie Cortez August 16, 2021 8:29 AM documented in this encounter [facility] 08-02-2021 History of Present illness Narrative Radiology Service Progress Note PATIENT NAME: Dena Mcallister DATE OF SERVICE: August 02, 2021 TIME: 9:35 AM PATIENT IDENTITY VERIFICATION COMPLETED USING TWO (2) IDENTIFIERS: Name and Date of confirmed by patient verbally. FALL SCREENING: Has the patient had 2 falls in the last year or 1 fall with injury or currently using an Ambulatory Assistive Device (Walker, Cane, Wheelchair, Crutches, etc.)? No PATIENT GENDER DATA: Female. status: : No status: NO. PATIENT RELEVANT IMPLANT DATA REVIEWED: Not Applicable RADIOLOGY DEPARTMENT: Bone Density PERIPHERAL IV DATA: Not applicable SIGNED BY: RT Say(R) August 02, 2021 9:35 AM documented in this encounter [facility] 07-27-2021 Miscellaneous Notes Order placed. Thank you Received call from [place] [facility] about Bone Density Order placed by . Patient also has Hyperparathyroidism and [facility] normally does an additional scan when they have this diagnosis as well. The order for Bone Density placed is correct but they are asking for an additional order for Dexa Forearm Skeleton or Dexa Wrist Skeleton. Can you place order? documented in this encounter [facility] 06-22-2021 Instructions Zulay Littlejohn MD - 06/22/2021 10:39 AM EDT Schedule a thyroid ultrasound and bone density at [facility]. Get labs drawn in 1-2 weeks. I will send you a message in my chart once the lab results become available. Follow up in 6 months . documented in this encounter [facility] 06-22-2021 History of Present illness Narrative Subjective: Dena Mcallister is a 71 year old female who presents for hypercalcemia/hyperparathyroidism, osteopenia, low TSH and thyroid nodules follow up. Last seen in 2018. Time course of hypercalcemia: since March 2017 Calcium intake: 600 mg daily Vit D intake:in calcium supplements Medications that impact calcium: None Symptoms of hypercalcemia: Osteoporosis/Fracture: None in the interval She has osteopenia Previously, I Rx Fosamax but she didn't start iy since she was undergoing dental work Bone pain: No Kidney stones: 25 years ago-reports that it has been a recurrent issue Arthralgias: No Memory loss: No Polydypsia and polyuria: No Constipation: No Previous work up: calcium 11, normal vitamin D and elevated PTH Family history of endocrine malignancies or failed neck surgery: No She also has thyroid nodules, states that previously, she saw and had thyroid biopsy Unable to recall how long ago her previous evaluation was. Last thyroid US was in September 2018. Related symptoms: Swallowing difficulty: No Shortness of breath when lying flat: No History of radiation exposure to the neck: No Family history of thyroid cancer: No She was diagnosed with karime in 2018 Her previous TSH was low Patient denies palpitations or tremors today Denies unintentional weight loss She is on a low carb diet REVIEW OF SYSTEMS: GENERAL:No weight loss, malaise or fevers NECK:Negative for lumps, goiter, pain and significant neck swelling RESPIRATORY: Negative for cough, hemoptysis, wheezing or shortness of breath CARDIOVASCULAR: Negative for chest pain, leg swelling or palpitations GASTROINTESTINAL: No nausea, vomiting, or persistent diarrhea GENITOURINARY: see HPI, no dysuria, Polyuria, no changes in urinary frequency MUSCULOSKELETAL:no muscle aches, arthralgia NEUROLOGIC: no numbness, tingling, no Paresthesias, no headaches SKIN:Negative for lesions, rash, and itching ENDOCRINE: Negative for cold or heat intolerance or goiter ALLERGIES: ALLERGIES No Known Allergies MEDICATIONS: Current Outpatient Medications on File Prior to Visit Medication Sig atorvastatin (LIPITOR) 40 mg tablet Take 1 tablet by mouth once daily. calcium carbonate 600 mg-cholecalciferol 200 units (CALCIUM 600 + D,3,) 600 mg(1,500mg) -200 unit tab Pt takes 300 mg of OTC calcium daily. OTC NUTRITIONAL SUPPLEMENT once daily. Calcium supplement DOCOSAHEXANOIC ACID/EPA (FISH OIL ORAL) Take by mouth once daily. MULTIVITAMIN TAB Take one(1) tablet daily. VITAMIN E 400 UNIT CAP Take one(1) tablet daily. No current facility-administered medications on file prior to visit. PAST MEDICAL HISTORY Diagnosis Date Dysmetabolic syndrome X Gross hematuria 01/02/2019 Gross hematuria X 1 episode Urine cytology negative CT urogram negative - 2 non-obstructive stones History of bilateral breast biopsy 10/03/2011 Follows with [facility] in [place]; reports benign History of kidney stones Impaired fasting glucose 08/03/2006 Multiple thyroid nodules Other and unspecified hyperlipidemia Pre-diabetes Unspecified disorder of thyroid nodule PAST SURGICAL HISTORY Procedure Laterality Date BIOPSY BREAST OPEN INCISIONAL Bx of breast, incisional SALPINGO-OOPHORECTOMY COMPL/PRTL UNI/BI SPX Salpingo-oophorectomy TOTAL ABDOMINAL HYSTERECT W/WO RMVL TUBE OVARY Hysterectomy, [place] FAMILY HISTORY Problem Relation Age of Onset Heart Father [place] Thyroid Mother levothyroxine Social History Tobacco Use Smoking status: Former Smoker Packs/day: 0.75 Years: 10.00 Pack years: 7.50 Types: Cigarettes Smokeless tobacco: Never Used Substance Use Topics Alcohol use: Yes Comment: rarely Drug use: No PHYSICAL EXAM: BP 146/76 Pulse 99 Ht 165.1 cm (5' 5 ) Wt 76.2 kg (168 lb) SpO2 98% BMI 27.96 kg/m General: Alert and oriented x3, no acute distress Eyes: anicteric sclera, Extraocular motions intact Neck: supple, no cervical lymphadenopathy Thyroid: normal size, normal texture, no palpable nodules Heart regular rate and rhythm, no murmers Chest: breathing unlabored, lungs clear to ausculation, no wheezing Abdomen: normal bowel sounds, non tender to palpation Neuro: gait normal, sensation grossly normal, no focal findings Extremities: no deformities, no edema Skin: No rash/erthema, no skin discoloration LAB: Ref. Range 02/10/2020 08:52 06/11/2021 07:14 Sodium Latest Ref Range: 136 - 144 mmol/L 137 140 Potassium Latest Ref Range: 3.7 - 5.1 mmol/L 3.8 4.2 Chloride Latest Ref Range: 97 - 105 mmol/L 104 105 CO2 Latest Ref Range: 22 - 30 mmol/L 26 25 BUN Latest Ref Range: 7 - 21 mg/dL 15 10 Creatinine Latest Ref Range: 0.58 - 0.96 mg/dL 0.75 0.84 Glucose Latest Ref Range: 74 - 99 mg/dL 115 (H) 93 Protein, Total Latest Ref Range: 6.3 - 8.0 g/dL 7.2 7.2 Calcium Latest Ref Range: 8.5 - 10.2 mg/dL 10.0 10.9 (H) Ref. Range 06/02/2017 06:00 Calcium, 24 Hr Urine Latest Ref Range: 100 - 300 mg/24 hr 189.4 Ref. Range 06/11/2021 07:14 Free T4 Latest Ref Range: 0.9 - 1.7 ng/dL 1.3 TSH Latest Ref Range: 0.270 - 4.200 mIU/L 0.056 (L) DXA May 2017: LUMBAR SPINE: The bone mineral density from L1 through L4 is 1.130 grams per square centimeter which yields a T-score of 0.8. This is not significantly changed. LEFT HIP: The bone mineral density of the total region of the hip is 0.972 grams per square centimeter which yields a T-score of 0.2. . LEFT FEMORAL NECK: The bone mineral density of the femoral neck is 0.752 grams per square centimeter which yields a T-score of -0.9. This is 8.2% worse. RIGHT HIP: The bone mineral density of the total region of the hip is 1.079 grams per square centimeter which yields a T-score of 1.1. . RIGHT FEMORAL NECK: The bone mineral density of the femoral neck is 0.833 grams per square centimeter which yields a T-score of -0.1. . LEFT FOREARM: The bone mineral density of the radius 1/3 is 0.569 grams per square centimeter which yields a T-score of -2.1 . ASSESSMENT/PLAN: 1. Hypercalcemia 2. Primary Hyperparathyroidism 3. Osteopenia 4. Karime's thyroditis 5. Thyroid nodules Update a calcium level PTH level is unchanged We discussed starting sensipar if calcium > 11 Renal function has been normal Check a Vitamin D level 24 hour urine calcium was normal Bone density had declined in hip, which is why I suggested fosamax in the past She has ongoing dental work, so unable to start fosamax at this time Update DXA to reassess BMD We previously discussed surgical indication for parathyroidectomy Reviewed and discussed the recent thyroid function test, which is consistent with subclinical hyperthyroidism Patient doesn't have palpitations or tremors Recheck TFTs in 4-6 months Repeat a thyroid US to reassess the size of the nodules I will send patient a message in my chart once the results become available Follow up in 6 months Zulay Littlejohn MD 06/22/21 [facility] Multiple thyroid nodules Nontoxic multinodular goiter [facility] Diagnosis Hypercalcemia Osteopenia of neck of femur, unspecified laterality Hyperparathyroidism (HCC) Hyperparathyroidism, unspecified [facility] Diagnosis Hyperparathyroidism (HCC)- Primary Hyperparathyroidism, unspecified Hypercalcemia Osteopenia of neck of femur, unspecified laterality [facility] Diagnosis Acute otitis externa of right ear, unspecified type- Primary [facility] Diagnosis Acute otitis externa of right ear, unspecified type [facility] Diagnosis Mixed hyperlipidemia [facility] Diagnosis Encounter for screening mammogram for breast cancer [facility] Diagnosis Hyperparathyroidism (HCC)- Primary Hyperparathyroidism, unspecified Subclinical hyperthyroidism Thyrotoxicosis without mention of goiter or other cause, without mention of thyrotoxic crisis or storm documented in this encounter [facility] for referral (narrative)* Diagnostic Procedure Only (Routine) - Pending Review Specialty Diagnoses / Procedures Referred By Jaquelin downs Referred To Contact US IMAGING Diagnoses Multiple thyroid nodules Procedures US THYROID/PARATHYROID US SOFT TISSUE HEAD & NECK REAL TIME IMGE Zulay Anthony MD [address] [address] [facility] Referral ID Status Reason Start Date Expiration Date Visits Requested Visits Authorized [id number] Pending Review Auto-Generat ed Referral 06/22/2021 07/22/2022 [address] [facility] for referral (narrative)* Diagnostic Procedure Only (Routine) - Closed Specialty Diagnoses / Procedures Referred By Contac t Referred To Contact US IMAGING Diagnoses Multiple thyroid nodules Procedures US THYROID/PARATHYROID US SOFT TISSUE HEAD & NECK REAL TIME IMGE Zulay Anthony MD [address] [address] [facility] Referral ID Status Reason Start Date Expiration Date V isits Requested Visits Authorized [id number] Closed Auto-Generate d Referral 06/22/2021 07/22/2022 [address] [facility] for referral (narrative)* Diagnostic Procedure Only (Routine) - Closed Specialty Diagnoses / Procedures Referred By Contac t Referred To Contact XR IMAGING Diagnoses Hyperparathyroidism (HCC) Hypercalcemia Osteopenia of neck of femur, unspecified laterality Procedures DXA-FOREARM SKELETON DXA BONE DENSITY STUDY 1/>SITES APPENDICAlpa Becerril APRN.CORRECTIONS SERGEANT [address] [address] Xr Imaging Referral ID Status Reason Start Date Expiration Date V isits Requested Visits Authorized [id number] Closed Auto-Generate d Referral 07/27/2021 08/26/2022 [address] [facility] for referral (narrative)* Diagnostic Procedure Only (Routine) - Closed Specialty Diagnoses / Procedures Referred By Contac t Referred To Contact XR IMAGING Diagnoses Hyperparathyroidism (HCC) Hypercalcemia Osteopenia of neck of femur, unspecified laterality Procedures DXA-FOREARM SKELETON DXA BONE DENSITY STUDY 1/>SITES APPENDICAlpa Becerril APRN.CORRECTIONS SERGEANT [address] [address] Xr Imaging Referral ID Status Reason Start Date Expiration Date V isits Requested Visits Authorized [id number] Closed Auto-Generate d Referral 07/27/2021 08/26/2022 [address] [facility] for referral (narrative)* Diagnostic Procedure Only (Routine) - Pending Review Specialty Diagnoses / Procedures Referred By Contac t Referred To Contact BR IMAGING Diagnoses Encounter for screening mammogram for breast cancer Procedures ALLIE SCREENING SCREENING MAMMOGRAPHY BI 2-VIEW BREAST INC CAD Marisa Carter PA-C [address] [place] [address] [facility] [address] [place] [address] Referral ID Status Reason Start Date Expiration Date Visits Requested Visits Authorized [id number] Pending Review Auto-Generat ed Referral 01/25/2023 02/24/2024 [address] [facility] for visit Narrative* Diagnostic Procedure Only (Routine) - Closed Specialty Diagnoses / Procedures Referred By Contac t Referred To Contact US IMAGING Diagnoses Multiple thyroid nodules Procedures US THYROID/PARATHYROID US SOFT TISSUE HEAD & NECK REAL TIME IMGE Zulay Anthony MD [address] [address] [facility] Imaging Referral ID Status Reason Start Date Expiration Date V isits Requested Visits Authorized [id number] Closed Auto-Generate d Referral 06/22/2021 07/22/2022 [address] [facility] for visit Narrative* Diagnostic Procedure Only (Routine) - Closed Specialty Diagnoses / Procedures Referred By Contac t Referred To Contact XR IMAGING Diagnoses Hyperparathyroidism (HCC) Hypercalcemia Osteopenia of neck of femur, unspecified laterality Procedures DXA-FOREARM SKELETON DXA BONE DENSITY STUDY 1/SITES APPENDICLR Alpa Covington APRN.CNP [address] [address] Xr Imaging Referral ID Status Reason Start Date Expiration Date V isits Requested Visits Authorized [id number] Closed Auto-Generate d Referral 07/27/2021 08/26/2022 1 1 [facility] Reason for Referral Status Reason Specialty Diagnoses / Procedures Referred By Contact Referred To Contact New Request Diagnoses Visit for screening mammogram Procedures MAMMO SCREENING BILATERAL Mammography-[place], Self-Requested [address] [place] [address] Specialty Diagnoses / Procedures Referred By Contac t Referred To Contact Endocrinology Diagnoses Hyperparathyroidism (HCC) Subclinical hyperthyroidism Procedures CONSULT TO ENDOCRINOLOGY OFFICE/OUTPATIENT NEW HIGH MDM 60-74 MINUTES Domonique Galvez APRN.CORRECTIONS SERGEANT [address] [place] [address] Referral ID Status Reason Start Date Expiration Date Visits Requested Visits Authorized [id number] Pending Review PCP Requested Referral 02/24/2023 02/24/2024 1 1 Assessments Diagnosis Visit for screening mammogra m Other screening mammogram Summary Purpose Family History No Family History Records FoundNo Family History Records FoundNo Family History Records Found Advance Directives No Advanced Directives Records FoundNo Advanced Directives Records FoundNo Advanced Directives Records Found Additional Source Comments Reason for Visit (unrecogniz ed section and content) Reason Comments Follow Up Reason Onset Date Comments Population Health Navigation Outreach 08/16/2021 [employer] Care Gaps Reason Comments Orders Bone Density Reason Comments Ear Problem Pt reported (RT) ear discharge, x4 days, denied pain. Reason Onset Date Comments Refill Request 02/28/2022 Reason Onset Date Comments Population Health Navigation Outreach 05/26/2022 [employer] Care Gap Reason Onset Date Comments Population Health Navigation Outreach 10/28/2022 [employer] care gaps Reason Onset Date Comments Refill Request 01/24/2023 Reason Comments Orders [facility] order faxed to [facility] Reason Comments Results Reason Onset Date Comments Population Health Navigation Outreach 03/01/2023 [employer] Care Gaps 11.7.23 INFORMATION SOURCE (unrecogn ized section and content) DATE CREATED AUTHOR AUTHOR'S ORGANIZ ATION 01/01/2019 [facility] DATE CREATED AUTHOR AUTHOR'S ORGANIZ ATION 03/04/2023 [facility] Source Comments (unrecognize d section and content) In the event this informatio n is protected by the Federal Confidentiality of Alcohol and Drug Abuse Patient Records regulations: The Federal rules restrict any use of the information to criminally investigate or prosecute any alcohol or drug abuse patient.[facility] the event this information is protected by the Federal Confidentiality of Alcohol and Drug Abuse Patient Records regulations: The Federal rules restrict any use of the information to criminally investigate or prosecute any alcohol or drug abuse patient.[facility] the event this information is protected by the Federal Confidentiality of Alcohol and Drug Abuse Patient Records regulations: The Federal rules restrict any use of the information to criminally investigate or prosecute any alcohol or drug abuse patient.[facility] Hospital[facility] the event this information is protected by the Federal Confidentiality of Alcohol and Drug Abuse Patient Records regulations: The Federal rules restrict any use of the information to criminally investigate or prosecute any alcohol or drug abuse patient.[facility] Hospital[facility] the event this information is protected by the Federal Confidentiality of Alcohol and Drug Abuse Patient Records regulations: The Federal rules restrict any use of the information to criminally investigate or prosecute any alcohol or drug abuse patient.[facility] HospitalIn the event this information is protected by the Federal Confidentiality of Alcohol and Drug Abuse Patient Records regulations: The Federal rules restrict any use of the information to criminally investigate or prosecute any alcohol or drug abuse patient.[facility] HospitalIn the event this information is protected by the Federal Confidentiality of Alcohol and Drug Abuse Patient Records regulations: The Federal rules restrict any use of the information to criminally investigate or prosecute any alcohol or drug abuse patient.[facility] HospitalIn the event this information is protected by the Federal Confidentiality of Alcohol and Drug Abuse Patient Records regulations: The Federal rules restrict any use of the information to criminally investigate or prosecute any alcohol or drug abuse patient.[facility] HospitalIn the event this information is protected by the Federal Confidentiality of Alcohol and Drug Abuse Patient Records regulations: The Federal rules restrict any use of the information to criminally investigate or prosecute any alcohol or drug abuse patient.[facility] HospitalIn the event this information is protected by the Federal Confidentiality of Alcohol and Drug Abuse Patient Records regulations: The Federal rules restrict any use of the information to criminally investigate or prosecute any alcohol or drug abuse patient.[facility] HospitalIn the event this information is protected by the Federal Confidentiality of Alcohol and Drug Abuse Patient Records regulations: The Federal rules restrict any use of the information to criminally investigate or prosecute any alcohol or drug abuse patient.[facility] HospitalIn the event this information is protected by the Federal Confidentiality of Alcohol and Drug Abuse Patient Records regulations: The Federal rules restrict any use of the information to criminally investigate or prosecute any alcohol or drug abuse patient.[facility] HospitalIn the event this information is protected by the Federal Confidentiality of Alcohol and Drug Abuse Patient Records regulations: The Federal rules restrict any use of the information to criminally investigate or prosecute any alcohol or drug abuse patient.[facility] HospitalIn the event this information is protected by the Federal Confidentiality of Alcohol and Drug Abuse Patient Records regulations: The Federal rules restrict any use of the information to criminally investigate or prosecute any alcohol or drug abuse patient.[facility] Care Teams (unrecognized sec tion and content) Senior Consulting Manager Relationship Specialty Start Date End Date Marisa Carter PA-C [address] [place] [address] PCP - General Family Practice 01/11/17 Senior Consulting Manager Relationship Specialty Start Date End Date Marisa Carter PA-C [address] [place] [address] PCP - General Family Practice 01/11/17 Senior Consulting Manager Relationship Specialty Start Date End Date Marisa Carter PA-C [address] [place] [address] PCP - General Family Practice 01/11/17 Senior Consulting Manager Relationship Specialty Start Date End Date Marisa Carter PA-C [address] [place] [address] PCP - General Family Practice 01/11/17 Senior Consulting Manager Relationship Specialty Start Date End Date Marisa Carter PA-C [address] [place] [address] PCP - General Family Medicine 01/11/17 Senior Consulting Manager Relationship Specialty Start Date End Date Marisa Carter PA-C [address] [place] [address] PCP - General Family Medicine 01/11/17 Senior Consulting Manager Relationship Specialty Start Date End Date Marisa Carter PA-C [address] [place] [address] PCP - General Family Medicine 01/11/17 Senior Consulting Manager Relationship Specialty Start Date End Date Marisa Carter PA-C [address] [place] [address] PCP - General Family Medicine 01/11/17 Senior Consulting Manager Relationship Specialty Start Date End Date Marisa Carter PA-C [address] [place] [address] PCP - General Family Medicine 01/11/17 Senior Consulting Manager Relationship Specialty Start Date End Date Marisa Carter PA-C [address] [place] [address] PCP - General Family Medicine 01/11/17 Senior Consulting Manager Relationship Specialty Start Date End Date Marisa Carter PA-C [address] [place] [address] PCP - General Family Medicine 01/11/17 Senior Consulting Manager Relationship Specialty Start Date End Date Marisa Carter PA-C [address] [place] [address] PCP - General Family Medicine 01/11/17 FOR RECORDS PERTAINING TO PATIENTS WHO ARE OR HAVE BEEN ENROLLED IN A CHEMICAL DEPENDENCY/SUBSTANCEABUSE PROGRAM, SOME INFORMATION MAY BE OMITTED. This clinical summary was aggregated from multiple sources. Caution should be exercised in using it in the provision of clinical care. This summary normalizes information from multiple sources, and as a consequence, information in this document may materially change the coding, format and clinical context of patient data. In addition, data may be omitted in some cases. CLINICAL DECISIONS SHOULD BE BASED ON THE PRIMARY CLINICAL RECORDS. [facility]. provides no warranty or guarantee of the accuracy or completeness of information in this document.
== END | disposition home or self-care (01) ==
LOC: OPBI 09:46
PROVIDERS: PCP Registered Nurse; Referring Provider Registered Nurse; Visit Provider Registered Nurse
DX: Z12.31 Encounter for screening mammogram for malignant neoplasm of breast (principal); Z80.3 Family history of malignant neoplasm of breast
CPT/HCPCS: 77063; 77067

== ENCOUNTER → 2024-04-26 | Outpatient (CLI) | payer MEDICARE, SELFPAY ==
--- NOTE | 2024-04-26 10:11 | BI_ITS ---
PROCEDURE: SCRN MAMM (CAD)W/RACHAEL BILAT REASON FOR EXAM: F, Age 74 y/o, routine annual mammogram. Aunt with breast cancer. Prior bilateral stereotactic breast biopsies and right excisional breast biopsy. TECHNIQUE: Bilateral screening digital breast tomosynthesis with 2D and 3D images. Computer aided detection. COMPARISON: Prior exam(s) dating back to April 24, 2023.. FINDINGS: There are scattered areas of fibroglandular density. A tissue clip marker is seen in the upper lateral aspect of the left breast. No suspicious masses, areas of developing architectural distortion, or suspicious calcifications. BI/SCRN MAMM (CAD)W/RACHAEL BILAT IMPRESSION: BI-RADS 2: BENIGN. RECOMMEND ANNUAL MAMMOGRAPHIC SCREENING. Follow-up code: Routine Follow-up The patient will be notified of the results by letter. Reading Location: [place] [address]
== END | disposition home or self-care (01) ==
LOC: OPBI 10:06
PROVIDERS: PCP Registered Nurse; Referring Provider Registered Nurse; Visit Provider Registered Nurse
DX: Z12.31 Encounter for screening mammogram for malignant neoplasm of breast (principal); Z80.3 Family history of malignant neoplasm of breast
CPT/HCPCS: 77063; 77067